=== PATIENT | male | born 1975 | race Two or more races ===

== ENCOUNTER 2024-05-09 10:05 | Emergency (ER) | payer OTHER ==
[~2024-05-09] VITALS: Ht 175.3 cm; Wt 108.9 kg
[2024-05-09] MEDS ORDERED: HYZAAR 100-251 EACH (10:06)
[2024-05-09] MEDS ORDERED: cloNIDine HCL 0.2 MG TABLET PO ONE (10:45)
== END 2024-05-09 12:06 | disposition home or self-care (01) ==
LOC: ER 10:06
DX: I10 Essential (primary) hypertension (principal); R00.2 Palpitations